=== PATIENT | female | born 1930 | race Caucasian/White ===

== ENCOUNTER 2016-07-16 10:39 | Emergency (ER) | payer OTHER ==
[~2016-07-16] VITALS: Ht 152.4 cm; Wt 64.0 kg
[~2016-07-16 10:39] MED LIST: ADVIL,NUPRIN,M200 MG PO; ALPRAZOLAM0.25 M2 PO; ALPRAZOLAM0.25 MG; AMBIEN10 M1; AMBIEN10 MG PO; ASCORBIC ACID500 M3 PO; ASPIRIN EC325 MG PO; ATENOLOL25 M1; Ambien PO; Ascorbic Acid,Ester- PO; BUSPAR10 MG PO; Buspar PO; CYCLOBENZAPRINE10 MG PO; Centrum Silver,Certa PO; Colace PO; DOCUSATE SODIU100 MG PO; Dulcolax PO; EFFEXOR XR75 MG PO; EFFEXOR37.5 MG PO; FERROUS SULFAT325 MG PO; FOLIC ACID1 MG PO; Feosol PO; Folvite PO; LIDODERM 5% P1 PATCH PO; LOPRESSOR25 MG PO; Lopressor PO; METAXALONE800 MG PO; METOPROLOL TART25 MG PO; MOTRIN600 MG PO; OXYCODONE-ACET1 EACH PO; PAXIL10 MG; PAXIL20 MG; PAXIL40 MG PO; PROTONIX IV40 MG PO; Paxil PO; SENNA PLUS TAB1 EACH PO; Senokot S,Pericolace PO; THERAGRAN1 TABLET PO; TRAMADOL HCL50 MG PO; Tums PO; ULTRAM50 MG PO; Ultram PO; VENLAFAXINE HC150 M1 PO; VITAMIN D32000 UNIT PO; Vitamin D PO; WYGESIC,DARV1 TABLET; XANAX0.25 MG PO; ZOLPIDEM TARTRA10 MG PO
[2016-07-16 11:44] LABS: EOSINOPHIL (%) 1.6 % (0-5); EOSINOPHIL COUNT 0.1 K/uL (0-0.3); HEMATOCRIT 37.5 % (36.0-46.0); IMMATURE GRANULOCYTE (%) 0.2 % (0.0-0.7); INSTRUMENT ABS NEUTROPHIL CT 5.8 K/uL; LYMPHOCYTE COUNT 1.3 K/uL (1.0-2.8); MCH 30.8 PG (29.0-34.0); MCHC 32.8 G/DL (30.0-36.0); MEAN PLAT.VOLUME 12.4 uM^3 (9.5-12.4); MONOCYTE (%) 11.2 % (3-12); MONOCYTE COUNT 0.9 K/uL (0-0.8); NEUTROPHIL COUNT 5.8 K/uL (1.8-6.4); PLATELET COUNT 140 K/uL (156-360); RBC DIS.WIDTH-CV 12.4 % (11.8-14.6); RBC DIS.WIDTH-SD 43.1 % (39-53); RED BLOOD COUNT 3.99 M/uL (3.80-5.20)
[2016-07-16 11:46] LABS: WHITE BLOOD COUNT 8.1 K/uL (4.1-10.2)
[2016-07-16 11:57] LABS: CHLORIDE 107 mEq/L (99-109); POTASSIUM 3.9 mEq/L (3.7-5.4); SODIUM 139 mEq/L (136-147)
[2016-07-16 11:58] LABS: GLUCOSE 87 mg/dL (70-99)
[2016-07-16 12:00] LABS: ANION GAP 9 MEQ/L (2-14)
[2016-07-16 12:02] LABS: GFR ESTIMATE (CALCULATED) 56 mL/min/
[2016-07-16 12:03] LABS: UREA NITROGEN (BUN) 16 mg/dL (9-23)
[2016-07-16 12:05] LABS: CREATINE KINASE 192 IU/L (1-294); TOTAL CK 192 IU/L (1-294)
[2016-07-16 12:07] LABS: TROP-I INTERPRETATION NEGATIVE; TROPONIN-I < 0.01 ng/mL (0.0-0.30)
[2016-07-16 17:41] VITALS: BP 131/77
== END 2016-07-16 17:51 | disposition home or self-care (01) ==
LOC: EME → EDBD 10:39 → EME 10:39
PROVIDERS: Emergency Medicine
DX: S76.012A Strain of muscle, fascia and tendon of left hip, initial encounter (principal); I10 Essential (primary) hypertension; Z88.0 Allergy status to penicillin; Z88.6 Allergy status to analgesic agent; W18.30XA Fall on same level, unspecified, initial encounter
CPT/HCPCS: 71010; 73502; 73721; 80048; 82550; 82553; 84484; 85025; 93005; 99281; 99285

== ENCOUNTER 2016-10-24 11:12 | Inpatient (IN) | payer OTHER ==
[~2016-10-24] VITALS: Ht 149.9 cm; Wt 73.8 kg
[2016-10-24] VITALS (12 sets, daily range): BP systolic 74–152; BP diastolic 52–88
[2016-10-24 11:58] LABS: EOSINOPHIL (%) 0 % (0-5); HEMATOCRIT 40.4 % (36.0-46.0); IMMATURE GRANULOCYTE (%) 0.8 % (0.0-0.7); IMMATURE GRANULOCYTE COUNT 0.2 K/uL; MCH 31.1 PG (29.0-34.0); MCHC 32.9 G/DL (30.0-36.0); MCV 94.4 FL (83-99); MEAN PLAT.VOLUME 13.4 uM^3 (9.5-12.4); MONOCYTE (%) 8.7 % (3-12); MONOCYTE COUNT 1.8 K/uL (0-0.8); NEUTROPHIL (%) 80.8 % (45-76); NRBC (%) 0.2 /100 WBC (0-0); PLATELET COUNT 139 K/uL (156-360); RBC DIS.WIDTH-CV 13.3 % (11.8-14.6); RBC DIS.WIDTH-SD 46.4 % (39-53); RED BLOOD COUNT 4.28 M/uL (3.80-5.20); WHITE BLOOD COUNT 21.1 K/uL (4.1-10.2)
[2016-10-24 12:11] LABS: INTER. NORMALIZED RATIO 1.2; PROTHROMBIN TIME 11.9 (9.2-11.2); PTT 27.3 (25-32)
[2016-10-24 12:18] LABS: CHLORIDE 98 mEq/L (99-109); POTASSIUM 5.1 mEq/L (3.7-5.4); SODIUM 136 mEq/L (136-147)
[2016-10-24 12:20] LABS: GLUCOSE 134 mg/dL (70-99)
[2016-10-24 12:21] LABS: ANION GAP 19 MEQ/L (2-14)
[2016-10-24 12:22] LABS: TOTAL BILIRUBIN 0.9 mg/dL (0.0-1.0)
[2016-10-24 12:24] LABS: ALKALINE PHOSPHATASE 121 IU/L (3-129); GFR ESTIMATE (CALCULATED) 11 mL/min/
[2016-10-24 12:25] LABS: UREA NITROGEN (BUN) 45 mg/dL (9-23)
[2016-10-24 12:28] LABS: TROP-I INTERPRETATION POSITIVE
[2016-10-24 12:46] LABS: TROPONIN-I 191.11 ng/mL (0.0-0.30)
[2016-10-24 13:26] LABS: BASE EXCESS -10.2 mEq/L (-3 to +3); BICARBONATE 16.8 mEq/L (22-26); CARBOXY HGB 2.4 % (0-5); METHEMOGLOBIN 1.8 % (0-1.5); PCO2 40 mm Hg (35-45); PO2 242 mm Hg (80-100)
[2016-10-24 13:27] LABS: pH 7.23 (7.35-7.45)
[2016-10-24 13:28] LABS: COMMENTS - BLOOD GASES A+C+; DEVICE NRBM; FI02 100 %; O2 FLOW 15 L/MIN
[2016-10-24 13:29] LABS: SITE AL
[2016-10-24 15:32] LABS: EOSINOPHIL (%) 0 % (0-5); IMMATURE GRANULOCYTE (%) 0.8 % (0.0-0.7); IMMATURE GRANULOCYTE COUNT 0.2 K/uL; INSTRUMENT ABS NEUTROPHIL CT 17.6 K/uL; LYMPHOCYTE COUNT 2.3 K/uL (1.0-2.8); MCH 31.1 PG (29.0-34.0); MCHC 33.2 G/DL (30.0-36.0); MCV 93.8 FL (83-99); MEAN PLAT.VOLUME 13.5 uM^3 (9.5-12.4); MONOCYTE (%) 10.9 % (3-12); MONOCYTE COUNT 2.5 K/uL (0-0.8); NEUTROPHIL (%) 78.2 % (45-76); NEUTROPHIL COUNT 17.6 K/uL (1.8-6.4); NRBC (%) 0.3 /100 WBC (0-0); PLATELET COUNT 138 K/uL (156-360); RBC DIS.WIDTH-CV 13.5 % (11.8-14.6); RBC DIS.WIDTH-SD 46.2 % (39-53); RED BLOOD COUNT 4.05 M/uL (3.80-5.20); WHITE BLOOD COUNT 22.5 K/uL (4.1-10.2)
[2016-10-24 15:38] LABS: COMMENTS - BLOOD GASES C+; O2 FLOW 12 L/MIN; SITE ALINE; pH 7.32 (7.35-7.45)
[2016-10-24 15:39] LABS: DEVICE VENTI MASK; FI02 50 %; TOTAL RESP RATE 16 resp/min
[2016-10-24 15:49] LABS: ANION GAP 15 MEQ/L (2-14); CHLORIDE 100 MEQ/L (99-109); DIRECT BILIRUBIN 0.4 mg/dL (0.0-0.3); MAGNESIUM 2.2 mg/dl (1.3-2.7); POTASSIUM 4.6 MEQ/L (3.7-5.4); SAMPLE HEMOLYSIS CHECK 0; SAMPLE ICTERIC CHECK 0; SAMPLE LIPEMIA CHECK 0; SODIUM 133 MEQ/L (136-147); TOTAL BILIRUBIN 0.9 MG/DL (0.0-1.0)
[2016-10-24 15:51] LABS: PCO2 36 mm Hg (35-45); PO2 137 mm Hg (80-100)
[2016-10-24 15:52] LABS: BASE EXCESS -6.9 mEq/L (-3 to +3); METHEMOGLOBIN 1.7 % (0-1.5)
[2016-10-24 15:53] LABS: BICARBONATE 18.5 mEq/L (22-26)
[2016-10-24 15:55] LABS: ALKALINE PHOSPHATASE 100 IU/L (3-129); GFR ESTIMATE (CALCULATED) 12 mL/min/; GLUCOSE 133 mg/dL (70-99); UREA NITROGEN (BUN) 48 mg/dL (9-23)
[2016-10-24 16:41] LABS: ADD MIUA? YES; BILIRUBIN NEGATIVE; BLOOD SMALL; GLUCOSE (STRIP) NEGATIVE; KETONES NEGATIVE; LEUKOCYTES LARGE; NITRITE NEGATIVE; PROTEIN (STRIP) 100; SPECIFIC GRAVITY 1.036 (1.000-1.030); UROBILINOGEN 0.2 MG/DL (0.2-1.0)
[2016-10-24 16:48] LABS: COLOR STRAW ((YELLOW))
[2016-10-24 17:00] LABS: UR CREATININE CONCENTRATION 176.3 MG/DL
[2016-10-24 17:06] LABS: BACTERIA 2+ /HPF; EPITHELIAL CELLS 1+ /HPF; HYALINE CASTS 0-5 /LPF; MUCUS 1+ /LPF; UCUL ADDED? YES; WHITE BLOOD CELLS TNTC /HPF (0-5); WHITE BLOOD CELLS CLUMP MOD /HPF (0-5)
[2016-10-24 17:24] LABS: CASTS PRESENT /LPF
[2016-10-24 17:25] LABS: FINE GRANULAR CASTS 0-5 /LPF
[2016-10-24 17:26] LABS: METH RESISTANT S AUREUS PCR NEGATIVE (NEGATIVE)
[2016-10-24 17:26] LABS: COARSE GRANULAR CASTS RARE /LPF
[2016-10-24 17:27] LABS: PROBE CHECK PASS; SPECIMEN PROCESSING CONTROL PASS
[2016-10-24 17:30] LABS: CRYSTALS PRESENT
[2016-10-24 17:31] LABS: CALCIUM OXALATE CRYSTALS RARE /HPF
[2016-10-24 18:04] LABS: POINT-OF-CARE METER ID UU14162636
[2016-10-24 19:31] LABS: TROP-I INTERPRETATION POSITIVE; TROPONIN-I 328.91 ng/mL (0.0-0.30)
[2016-10-24 19:34] LABS: CREATINE KINASE 1502 IU/L (1-294); TOTAL CK 1502 IU/L (1-294)
[2016-10-24 19:35] LABS: CK-MB 288.1 ng/mL (0.0-4.9)
[2016-10-24 23:38] LABS: POINT-OF-CARE METER ID UU14162636
[2016-10-25] VITALS (25 sets, daily range): BP systolic 67–121; BP diastolic 46–76
[2016-10-25 00:54] LABS: TROP-I INTERPRETATION POSITIVE
[2016-10-25 01:08] LABS: TOTAL CK 1793 IU/L (1-294)
[2016-10-25 01:10] LABS: CREATINE KINASE 1793 IU/L (1-294)
[2016-10-25 01:11] LABS: TROPONIN-I 274.66 ng/mL (0.0-0.30)
[2016-10-25 01:13] LABS: CK-MB 199.2 ng/mL (0.0-4.9)
[2016-10-25 06:28] LABS: POINT-OF-CARE METER ID UU13113803
[2016-10-25 07:06] LABS: EOSINOPHIL (%) 0 % (0-5); HEMATOCRIT 36.1 % (36.0-46.0); IMMATURE GRANULOCYTE (%) 0.8 % (0.0-0.7); IMMATURE GRANULOCYTE COUNT 0.1 K/uL; INSTRUMENT ABS NEUTROPHIL CT 12.5 K/uL; LYMPHOCYTE COUNT 1.9 K/uL (1.0-2.8); MCH 31.2 PG (29.0-34.0); MCHC 33.5 G/DL (30.0-36.0); MONOCYTE (%) 14.7 % (3-12); MONOCYTE COUNT 2.5 K/uL (0-0.8); NEUTROPHIL (%) 73.3 % (45-76); NEUTROPHIL COUNT 12.5 K/uL (1.8-6.4); RBC DIS.WIDTH-CV 13.4 % (11.8-14.6); RBC DIS.WIDTH-SD 45.2 % (39-53); RED BLOOD COUNT 3.88 M/uL (3.80-5.20); WHITE BLOOD COUNT 17.1 K/uL (4.1-10.2)
[2016-10-25 07:53] LABS: TROP-I INTERPRETATION POSITIVE; TROPONIN-I 230.83 ng/mL (0.0-0.30)
[2016-10-25 08:39] LABS: CK-MB 135.3 ng/mL (0.0-4.9)
[2016-10-25 09:01] LABS: ANION GAP 15 MEQ/L (2-14); CHLORIDE 92 MEQ/L (99-109); CREATINE KINASE 1111 IU/L (1-294); GFR ESTIMATE (CALCULATED) 13 mL/min/; GLUCOSE 142 mg/dL (70-99); MAGNESIUM 2.1 mg/dl (1.3-2.7); POTASSIUM 4.1 MEQ/L (3.7-5.4); SAMPLE HEMOLYSIS CHECK 0; SAMPLE ICTERIC CHECK 0; SAMPLE LIPEMIA CHECK 0; SODIUM 135 MEQ/L (136-147); TOTAL CK 1111 IU/L (1-294); UREA NITROGEN (BUN) 52 mg/dL (9-23)
[2016-10-25 09:02] LABS: HEMATOLOGY COMMENT 1 SMEAR COMPATIBLE; MEAN PLAT.VOLUME 13.6 uM^3 (9.5-12.4); PLAT.SUFFICIENCY DECREASED
[2016-10-25 11:38] LABS: PLATELET COUNT 96 K/uL (156-360)
[2016-10-25 12:32] LABS: POINT-OF-CARE METER ID UU13113803
[2016-10-25 13:28] LABS: CK-MB 84.6 ng/mL (0.0-4.9)
[2016-10-25 13:40] LABS: TROP-I INTERPRETATION POSITIVE; TROPONIN-I 156.15 ng/mL (0.0-0.30)
[2016-10-25 14:10] LABS: CREATINE KINASE 933 IU/L (1-294); TOTAL CK 933 IU/L (1-294)
[2016-10-25 15:59] LABS: INTER. NORMALIZED RATIO 1.3; PROTHROMBIN TIME 12.8 (9.2-11.2); PTT 24.7 (25-32)
[2016-10-25 18:15] LABS: POINT-OF-CARE METER ID UU13113803
[2016-10-25 20:48] LABS: POINT-OF-CARE METER ID UU13113803
[2016-10-26] VITALS (22 sets, daily range): BP systolic 71–116; BP diastolic 47–83
[2016-10-26 05:19] LABS: EOSINOPHIL (%) 0.1 % (0-5); HEMATOCRIT 32.7 % (36.0-46.0); IMMATURE GRANULOCYTE (%) 0.4 % (0.0-0.7); IMMATURE GRANULOCYTE COUNT 0.1 K/uL; INSTRUMENT ABS NEUTROPHIL CT 9.3 K/uL; LYMPHOCYTE COUNT 1.3 K/uL (1.0-2.8); MCH 31.1 PG (29.0-34.0); MCHC 32.7 G/DL (30.0-36.0); MCV 95.1 FL (83-99); MEAN PLAT.VOLUME 13.9 uM^3 (9.5-12.4); MONOCYTE (%) 12.4 % (3-12); MONOCYTE COUNT 1.5 K/uL (0-0.8); NEUTROPHIL (%) 76.2 % (45-76); NEUTROPHIL COUNT 9.3 K/uL (1.8-6.4); NRBC (%) 1.5 /100 WBC (0-0); PLATELET COUNT 106 K/uL (156-360); RBC DIS.WIDTH-CV 13.6 % (11.8-14.6); RBC DIS.WIDTH-SD 46.5 % (39-53); RED BLOOD COUNT 3.44 M/uL (3.80-5.20); WHITE BLOOD COUNT 12.2 K/uL (4.1-10.2)
[2016-10-26 06:04] LABS: ALKALINE PHOSPHATASE 89 IU/L (3-129); ANION GAP 10 MEQ/L (2-14); CHLORIDE 93 MEQ/L (99-109); DIRECT BILIRUBIN 0.2 mg/dL (0.0-0.3); GLUCOSE 115 mg/dL (70-99); POTASSIUM 3.6 MEQ/L (3.7-5.4); SAMPLE HEMOLYSIS CHECK 0; SAMPLE ICTERIC CHECK 0; SAMPLE LIPEMIA CHECK 0; SODIUM 138 MEQ/L (136-147); UREA NITROGEN (BUN) 41 mg/dL (9-23)
[2016-10-26 06:06] LABS: GFR ESTIMATE (CALCULATED) 18 mL/min/; TOTAL BILIRUBIN 0.6 MG/DL (0.0-1.0)
[2016-10-26 13:04] LABS: POINT-OF-CARE METER ID UU13113803
[2016-10-26 17:47] LABS: POINT-OF-CARE METER ID UU13113803
[2016-10-26 21:13] LABS: POINT-OF-CARE METER ID UU13113803
[2016-10-27] VITALS (9 sets, daily range): BP systolic 99–142; BP diastolic 63–97
[2016-10-27 04:59] LABS: EOSINOPHIL (%) 0.8 % (0-5); EOSINOPHIL COUNT 0.1 K/uL (0-0.3); HEMATOCRIT 32.8 % (36.0-46.0); IMMATURE GRANULOCYTE (%) 0.7 % (0.0-0.7); IMMATURE GRANULOCYTE COUNT 0.1 K/uL; INSTRUMENT ABS NEUTROPHIL CT 6.5 K/uL; LYMPHOCYTE COUNT 1.2 K/uL (1.0-2.8); MCH 30.8 PG (29.0-34.0); MCV 96.2 FL (83-99); MEAN PLAT.VOLUME 13.1 uM^3 (9.5-12.4); MONOCYTE (%) 11.7 % (3-12); NEUTROPHIL (%) 73.6 % (45-76); NEUTROPHIL COUNT 6.5 K/uL (1.8-6.4); NRBC (%) 1.1 /100 WBC (0-0); PLATELET COUNT 111 K/uL (156-360); RBC DIS.WIDTH-CV 13.8 % (11.8-14.6); RBC DIS.WIDTH-SD 47.9 % (39-53); RED BLOOD COUNT 3.41 M/uL (3.80-5.20); WHITE BLOOD COUNT 8.8 K/uL (4.1-10.2)
[2016-10-27 05:10] LABS: CHLORIDE 100 mEq/L (99-109); POTASSIUM 4.3 mEq/L (3.7-5.4); SODIUM 138 mEq/L (136-147)
[2016-10-27 05:11] LABS: MAGNESIUM 1.9 mg/dL (1.3-2.7)
[2016-10-27 05:12] LABS: GLUCOSE 110 mg/dL (70-99)
[2016-10-27 05:13] LABS: ANION GAP 10 MEQ/L (2-14)
[2016-10-27 05:16] LABS: GFR ESTIMATE (CALCULATED) 25 mL/min/
[2016-10-27 05:17] LABS: UREA NITROGEN (BUN) 37 mg/dL (9-23)
[2016-10-27 17:41] LABS: POINT-OF-CARE METER ID UU13113748
[2016-10-27 21:45] LABS: POINT-OF-CARE METER ID UU13113748
[2016-10-28] VITALS (8 sets, daily range): BP systolic 106–160; BP diastolic 77–96
[2016-10-28 05:45] LABS: EOSINOPHIL (%) 2.8 % (0-5); EOSINOPHIL COUNT 0.3 K/uL (0-0.3); HEMATOCRIT 34.4 % (36.0-46.0); IMMATURE GRANULOCYTE COUNT 0.1 K/uL; INSTRUMENT ABS NEUTROPHIL CT 6.2 K/uL; LYMPHOCYTE COUNT 1.5 K/uL (1.0-2.8); MCH 31.6 PG (29.0-34.0); MCHC 32.8 G/DL (30.0-36.0); MCV 96.1 FL (83-99); MEAN PLAT.VOLUME 12.9 uM^3 (9.5-12.4); MONOCYTE (%) 13.1 % (3-12); MONOCYTE COUNT 1.2 K/uL (0-0.8); NEUTROPHIL COUNT 6.2 K/uL (1.8-6.4); PLATELET COUNT 136 K/uL (156-360); RBC DIS.WIDTH-CV 13.9 % (11.8-14.6); RBC DIS.WIDTH-SD 46.7 % (39-53); RED BLOOD COUNT 3.58 M/uL (3.80-5.20); WHITE BLOOD COUNT 9.3 K/uL (4.1-10.2)
[2016-10-28 06:32] LABS: ALKALINE PHOSPHATASE 87 IU/L (3-129); ANION GAP 11 MEQ/L (2-14); CHLORIDE 99 MEQ/L (99-109); GLUCOSE 94 mg/dL (70-99); MAGNESIUM 1.9 mg/dl (1.3-2.7); POTASSIUM 4.4 MEQ/L (3.7-5.4); SAMPLE HEMOLYSIS CHECK 0; SAMPLE ICTERIC CHECK 0; SAMPLE LIPEMIA CHECK 0; SODIUM 138 MEQ/L (136-147); UREA NITROGEN (BUN) 32 mg/dL (9-23)
[2016-10-28 06:34] LABS: GFR ESTIMATE (CALCULATED) 35 mL/min/; TOTAL BILIRUBIN 0.8 MG/DL (0.0-1.0)
[2016-10-29] VITALS (7 sets, daily range): BP systolic 91–158; BP diastolic 50–97
[2016-10-29 07:35] LABS: POINT-OF-CARE METER ID UU14174216
[2016-10-29 07:51] LABS: EOSINOPHIL (%) 4.7 % (0-5); EOSINOPHIL COUNT 0.4 K/uL (0-0.3); IMMATURE GRANULOCYTE (%) 1.6 % (0.0-0.7); IMMATURE GRANULOCYTE COUNT 0.1 K/uL; INSTRUMENT ABS NEUTROPHIL CT 5.7 K/uL; LYMPHOCYTE COUNT 1.3 K/uL (1.0-2.8); MCH 32.3 PG (29.0-34.0); MCHC 33.7 G/DL (30.0-36.0); MCV 95.9 FL (83-99); MONOCYTE (%) 12.6 % (3-12); MONOCYTE COUNT 1.1 K/uL (0-0.8); NEUTROPHIL (%) 65.6 % (45-76); NEUTROPHIL COUNT 5.7 K/uL (1.8-6.4); NRBC (%) 0.3 /100 WBC (0-0); PLATELET COUNT 132 K/uL (156-360); RBC DIS.WIDTH-CV 14.7 % (11.8-14.6); RBC DIS.WIDTH-SD 47.2 % (39-53); RED BLOOD COUNT 3.65 M/uL (3.80-5.20); WHITE BLOOD COUNT 8.7 K/uL (4.1-10.2)
[2016-10-29 08:19] LABS: ANION GAP 15 MEQ/L (2-14); CHLORIDE 101 MEQ/L (99-109); GFR ESTIMATE (CALCULATED) 45 mL/min/; GLUCOSE 86 mg/dL (70-99); MAGNESIUM 1.8 mg/dl (1.3-2.7); SAMPLE HEMOLYSIS CHECK 0; SAMPLE ICTERIC CHECK 0; SAMPLE LIPEMIA CHECK 0; SODIUM 141 MEQ/L (136-147); UREA NITROGEN (BUN) 25 mg/dL (9-23)
[2016-10-29 13:09] LABS: INTER. NORMALIZED RATIO 1.3; PROTHROMBIN TIME 12.9 (9.2-11.2); PTT 47.9 (25-32)
[2016-10-30 04:39] VITALS: BP 92/53
[2016-10-30 05:39] LABS: EOSINOPHIL (%) 6.9 % (0-5); EOSINOPHIL COUNT 0.5 K/uL (0-0.3); HEMATOCRIT 32.5 % (36.0-46.0); IMMATURE GRANULOCYTE (%) 1.2 % (0.0-0.7); IMMATURE GRANULOCYTE COUNT 0.1 K/uL; INSTRUMENT ABS NEUTROPHIL CT 4.2 K/uL; LYMPHOCYTE COUNT 1.3 K/uL (1.0-2.8); MCH 32.4 PG (29.0-34.0); MCHC 33.5 G/DL (30.0-36.0); MCV 96.7 FL (83-99); MEAN PLAT.VOLUME 13.2 uM^3 (9.5-12.4); MONOCYTE COUNT 1.2 K/uL (0-0.8); NEUTROPHIL (%) 58.6 % (45-76); NEUTROPHIL COUNT 4.2 K/uL (1.8-6.4); PLATELET COUNT 124 K/uL (156-360); RBC DIS.WIDTH-SD 49.9 % (39-53); RED BLOOD COUNT 3.36 M/uL (3.80-5.20); WHITE BLOOD COUNT 7.3 K/uL (4.1-10.2)
[2016-10-30 06:01] LABS: ALKALINE PHOSPHATASE 86 IU/L (3-129); ANION GAP 12 MEQ/L (2-14); CHLORIDE 103 MEQ/L (99-109); GFR ESTIMATE (CALCULATED) 50 mL/min/; GLUCOSE 98 mg/dL (70-99); MAGNESIUM 1.8 mg/dl (1.3-2.7); POTASSIUM 3.7 MEQ/L (3.7-5.4); SAMPLE HEMOLYSIS CHECK 0; SAMPLE ICTERIC CHECK 0; SAMPLE LIPEMIA CHECK 0; SODIUM 142 MEQ/L (136-147); TOTAL BILIRUBIN 0.7 MG/DL (0.0-1.0); UREA NITROGEN (BUN) 22 mg/dL (9-23)
[2016-10-30 08:13] VITALS: BP 118/74
[2016-10-30 11:58] VITALS: BP 116/80
[2016-10-30] MEDS ORDERED: TRAMADOL HCL50 MG PO (12:37)
[2016-10-30] MEDS ORDERED: EFFEXOR XR150 MG PO (12:38)
[2016-10-30] MEDS ORDERED: LASIX20 MG PO (12:39)
[2016-10-30] MEDS ORDERED: DETROL2 MG PO (12:40)
[2016-10-30] MEDS ORDERED: TRAZODONE HCL50 MG PO (12:41)
[2016-10-30 15:42] VITALS: BP 97/65
[2016-10-30 19:15] VITALS: BP 105/61
[2016-10-30 23:00] VITALS: BP 98/67
[2016-10-31 03:00] VITALS: BP 96/61
[2016-10-31 05:17] LABS: EOSINOPHIL (%) 6.4 % (0-5); EOSINOPHIL COUNT 0.5 K/uL (0-0.3); HEMATOCRIT 33.5 % (36.0-46.0); IMMATURE GRANULOCYTE (%) 1.1 % (0.0-0.7); IMMATURE GRANULOCYTE COUNT 0.1 K/uL; INSTRUMENT ABS NEUTROPHIL CT 5.1 K/uL; LYMPHOCYTE COUNT 1.6 K/uL (1.0-2.8); MCH 32.1 PG (29.0-34.0); MCHC 32.8 G/DL (30.0-36.0); MCV 97.7 FL (83-99); MEAN PLAT.VOLUME 12.9 uM^3 (9.5-12.4); MONOCYTE (%) 11.8 % (3-12); NEUTROPHIL (%) 61.1 % (45-76); NEUTROPHIL COUNT 5.1 K/uL (1.8-6.4); NRBC (%) 0.2 /100 WBC (0-0); PLATELET COUNT 120 K/uL (156-360); RBC DIS.WIDTH-CV 15.4 % (11.8-14.6); RBC DIS.WIDTH-SD 52.7 % (39-53); RED BLOOD COUNT 3.43 M/uL (3.80-5.20); WHITE BLOOD COUNT 8.4 K/uL (4.1-10.2)
[2016-10-31 05:57] LABS: ANION GAP 10 MEQ/L (2-14); CHLORIDE 104 MEQ/L (99-109); GFR ESTIMATE (CALCULATED) 41 mL/min/; GLUCOSE 101 mg/dL (70-99); MAGNESIUM 1.8 mg/dl (1.3-2.7); POTASSIUM 3.9 MEQ/L (3.7-5.4); SAMPLE HEMOLYSIS CHECK 0; SAMPLE ICTERIC CHECK 0; SAMPLE LIPEMIA CHECK 0; SODIUM 144 MEQ/L (136-147); UREA NITROGEN (BUN) 21 mg/dL (9-23)
[2016-10-31 09:08] VITALS: BP 110/77
[2016-10-31] MEDS ORDERED: LOPRESSOR25 MG PO (09:45)
[2016-10-31] MEDS ORDERED: CLOPIDOGREL75 MG PO (09:45)
[2016-10-31] MEDS ORDERED: PANTOPRAZOLE SO40 MG PO (09:45)
[2016-10-31] MEDS ORDERED: RISPERIDONE0.5 MG PO (09:45)
[2016-10-31] MEDS ORDERED: ASPIR-LOW81 MG PO (09:45)
[2016-10-31] MEDS ORDERED: XARELTO15 MG PO (09:45)
[2016-10-31] MEDS ORDERED: SIMVASTATIN40 MG PO (09:48)
[2016-10-31 12:27] VITALS: BP 109/81
== END 2016-10-31 13:39 | disposition home health service (06) | DRG 246 ==
LOC: EME 11:12 → CATH 12:49 → EME 12:49 → 4WEST 14:23 → 4EAST 14:23 → 2SOUTH 14:23 → 4WEST 14:33 → 4EAST 10-28 06:03
PROVIDERS: Emergency Medicine; Family Medicine; Internal Medicine; Internal Medicine Cardiovascular Disease; Internal Medicine Nephrology
DX: I21.19 ST elevation (STEMI) myocardial infarction involving other coronary artery of inferior wall (principal); I25.10 Atherosclerotic heart disease of native coronary artery without angina pectoris; R57.9 Shock, unspecified; N17.9 Acute kidney failure, unspecified; K72.00 Acute and subacute hepatic failure without coma; N39.0 Urinary tract infection, site not specified; B96.1 Klebsiella pneumoniae [K. pneumoniae] as the cause of diseases classified elsewhere; E87.1 Hypo-osmolality and hyponatremia; I44.1 Atrioventricular block, second degree; I48.0 Paroxysmal atrial fibrillation; D69.6 Thrombocytopenia, unspecified; E87.2 Acidosis; E87.5 Hyperkalemia; E87.6 Hypokalemia; E87.8 Other disorders of electrolyte and fluid balance, not elsewhere classified; I51.7 Cardiomegaly; I70.0 Atherosclerosis of aorta; F22 Delusional disorders; I10 Essential (primary) hypertension; E78.5 Hyperlipidemia, unspecified; F34.1 Dysthymic disorder; F41.9 Anxiety disorder, unspecified; G89.29 Other chronic pain; K21.9 Gastro-esophageal reflux disease without esophagitis; R09.02 Hypoxemia; Z66 Do not resuscitate; R00.1 Bradycardia, unspecified; R73.9 Hyperglycemia, unspecified; G43.909 Migraine, unspecified, not intractable, without status migrainosus; R19.7 Diarrhea, unspecified; R42 Dizziness and giddiness; M19.90 Unspecified osteoarthritis, unspecified site; M54.5 Low back pain; G47.00 Insomnia, unspecified; E66.9 Obesity, unspecified; Z68.31 Body mass index [BMI] 31.0-31.9, adult; Z79.82 Long term (current) use of aspirin; Z87.11 Personal history of peptic ulcer disease; Z88.5 Allergy status to narcotic agent
CPT/HCPCS: 36600; 71010; 80048; 80048 91; 80053; 80076; 81003; 82550; 82550 91; 82553; 82570; 82803; 82948; 83735; 83880; 84100; 84156; 84300; 84484; 85025; 85025 91; 85027; 85347; 85610; 85730; 87040; 87077; 87086; 87186; 87641; 92610 GN; 93005; 93306; 94640; 94640 76; 94799; 97530 GO; 99202; 99281; 99285; C1725; C1757; C1769; C1874; C1887; C1894; C9113; J0461; J0692; J0696; J1160; J1170; J1644; J1815; J1940; J1956; J2250; J2405; J3010; J3246; J7030; J7040; J7050; J7070